=== PATIENT | female | born 1945 | race Caucasian/White ===

== ENCOUNTER 2016-11-17 21:02 | Emergency (ER) | payer MEDICARE, OTHER ==
[2014-03-07 08:24] VITALS: BMI 24.0
[~2016-11-17 21:02] MED LIST: ACETAMINOPHEN500 M1 PO; ASCORBIC ACID500 MG PO; BENADRYL INJ50 MG/ML IV; BENADRYL25 MG; BENADRYL25 MG PO; BIOTIN5 MG PO; BOUDREAUXS113 GM TP; CALCIUM 600+D T1 TA1; CALCIUM 600+D T1 TA1 PO; CHLORASEPTIC20 ML PO; COLACE100 MG PO; COUMADIN5 MG PO; DULCOLAX10 MG/SUPP RC; ELIQUIS2.5 MG PO; FISH OIL 1,0001 CA1 PO; FLEXERIL10 MG PO; FORMULA E400 UNIT PO; FOSAMAX 70 MG T70 MG; FOSAMAX35 MG; GABAPENTIN100 MG PO; GARLIC1 CAP PO; GLUCOSAMINE & C1 CAP PO; IPRAT-ALBUT 0.5-3 ML NEB; LOVENOX40 MG/0.4 SQ; LUTEIN PO; LUTEIN20 MG PO; MOBIC7.5 MG PO; MSM; MUCINEX600 MG PO; MULTI-DAY VITAM1 TAB PO; NARCAN INJ0.4 MG/ML IV; NATURAL SENNA8.6 MG PO; NEURONTIN 100100 MG PO; NORCO 10/325 TA1 TA1 PO; NORCO 5/325 TAB1 TA1 PO; OMEGA-3100 MG PO; OMNICEF300 MG PO; ONDANSETRON4 MG/2 M3 IV; OYSCO 500+D TAB1 TAB PO; POTASSIUM99 M1 PO; PRAVACHOL20 MG PO; RESTORIL15 MG PO; ROBAXIN-750750 MG PO; SALINE FLUSH10 ML IJ; SENNA-C8.6 MG PO; SENNA8.6 MG PO; STOOL SOFTENER240 MG; VITAMIN B-12500 MCG PO; VITAMIN D31000 UNI2 PO; VITAMIN D5000 UNIT PO; VITAMIN E1000 UNIT PO; XANAX1 MG PO; ZOFRAN4 MG PO
== END 2016-11-17 22:55 | disposition home or self-care (01) ==
LOC: D.ER 21:02
DX: F41.9 Anxiety disorder, unspecified (principal); J18.9 Pneumonia, unspecified organism; E78.5 Hyperlipidemia, unspecified; G47.00 Insomnia, unspecified

== ENCOUNTER 2019-07-31 02:59 | Emergency (ER) | payer MEDICARE, OTHER ==
[~2019-07-31] VITALS: Ht 162.6 cm; Wt 56.8 kg
[2019-07-31 03:04] VITALS: Ht 162.6 cm; Wt 56.8 kg
[2019-07-31] MEDS ORDERED: CYCLOBENZAPRINE10 MG PO (03:09)
[2019-07-31] MEDS ORDERED: RESTORIL15 MG PO (03:09)
[2019-07-31 03:38] LABS: BASOPHILS 0.1 % (0-2); EOSINOPHILS 0.7 % (0-7); HEMATOCRIT 38.3 % (36.0-48.0); HEMOGLOBIN 12.7 g/dL (12-16); IMMATURE GRANULOCYTES 0.3 % (0-5); LYMPHOCYTES 9.1 % (15-50); MCH 30.8 pg (26.0-34.0); MCHC 33.2 g/dL (31.0-37.0); MEAN PLATELET VOLUME 9.7 fL (7.4-10.4); MONOCYTES 9.9 % (2-11); NEUTROPHILS 79.9 % (40-80); PLATELET COUNT 227 10x3/uL (130-400); RBC 4.12 10x6/uL (4.00-5.40); RDW 13.4 % (11.5-14.5); WBC 10.7 10x3/uL (4.8-10.8)
[2019-07-31 03:47] LABS: CALC OSMOLALITY 293 mosm/kg (275-300); CALCIUM 8.9 mg/dL (8.5-10.1); CARBON DIOXIDE 28.5 mmol/L (21.0-32.0); CHLORIDE - SERUM 108 mmol/L (98-107); CREATININE - SERUM 0.9 mg/dL (0.6-1.3); GLUCOSE 139 mg/dL (74-106); POTASSIUM - SERUM 3.6 mmol/L (3.5-5.1); SODIUM 145 mmol/L (136-145); UREA NITROGEN 21 mg/dL (7-18); eGFR NON AFRICAN AMERICAN 65 mL/min (90-120)
[2019-07-31 03:54] LABS: ALBUMIN 3.5 g/dL (3.4-5.0); ALKALINE PHOSPHATASE 112 U/L (30-120); ALT (SGPT) 31 U/L (10-68); AMYLASE - SERUM 171 U/L (25-115); BILIRUBIN - TOTAL 0.31 mg/dL (0.2-1.3); LIPASE 135 U/L (73-393); PROTEIN - SERUM 6.4 g/dL (6.4-8.2); TROPONIN-I < 0.017 ng/mL (0.000-0.060)
[2019-07-31 03:54] LABS: BILIRUBIN NEGATIVE (NEGATIVE); GLUCOSE NEGATIVE (NEGATIVE); KETONE NEGATIVE (NEGATIVE); NITRITE NEGATIVE (NEGATIVE); UROBILINOGEN NORMAL (NORMAL)
[2019-07-31 03:56] LABS: BACTERIA NONE SEEN /hpf (NEGATIVE); EPITHELIAL CELLS 0-5 /hpf (0-5); RED CELLS - URINE 0-5 /hpf (0-5); WHITE CELLS - URINE 0-5 /hpf (NEGATIVE)
[2019-07-31 08:11] VITALS: BP 124/71
== END 2019-07-31 09:21 | disposition other institution (70) ==
LOC: D.ER 02:59
PROVIDERS: Family Medicine
DX: N13.2 Hydronephrosis with renal and ureteral calculous obstruction (principal); K59.00 Constipation, unspecified

== ENCOUNTER → 2020-11-08 15:16 | Outpatient (CLI) | payer MEDICARE, OTHER ==
[2019-07-31 03:04] VITALS: BMI 21.5
[~2020-11-08 15:16] MED LIST changes: +CYCLOBENZAPRINE10 MG PO
== END | disposition home or self-care (01) ==
LOC: D.MRI 11-05 15:00
PROVIDERS: ATTEND Clinical Nurse Specialist Family Health
DX: M25.512 Pain in left shoulder (principal)

== ENCOUNTER → 2020-11-18 17:45 | Outpatient (CLI) | payer MEDICARE, OTHER ==
[2019-07-31 03:04] VITALS: BMI 21.5
== END | disposition home or self-care (01) ==
LOC: D.LABREF 17:45
PROVIDERS: ATTEND Orthopaedic Surgery
DX: M19.012 Primary osteoarthritis, left shoulder (principal)